=== PATIENT | female | born 1995 | race Two or more races ===

== ENCOUNTER 2018-08-09 11:28 | Emergency (ER) | payer OTHER ==
[2018-08-09] MEDS ORDERED: LORazepam 2 MG/ML INJ ONE (11:41)
[2018-08-09 12:24] LABS: PLATELET COUNT 312 10^3/uL (150-400)
--- NOTE | 2018-08-09 12:54 | EDPHY ---
H & P Stated Complaint: MULTIPLE SEIZURES Time Seen by Provider: 08/09/18 12:44 HPI/ROS: CHIEF COMPLAINT: Seizure HISTORY OF PRESENT ILLNESS: 23-year-old female with history of seizure disorder presents after a likely seizure. She was diagnosed with a seizure disorder 2 years ago and took Keppra for a while. She has stopped taking Keppra. She awoke on the floor in the morning, feeling like she had a seizure during the night. She typically has had seizures at nighttime only during sleeping. Her mattress is on the floor. Tongue feels sore, o/w feels back to normal. Has an appointment with a seizure specialist in [place]. REVIEW OF SYSTEMS: complete 10 point ROS reviewed and is negative except for the noted elements in the HPI Source: Patient - Personal History LMP (Females 10-55): Now Current Tetanus/Diphtheria Vaccine: Yes Current Tetanus Diphtheria and Acellular Pertussis (TDAP): Yes - Medical/Surgical History Hx Asthma: Yes Hx Chronic Respiratory Disease: No Hx Diabetes: No Hx Cardiac Disease: No Hx Renal Disease: No Hx Cirrhosis: No Hx Alcoholism: No Hx HIV/AIDS: No Hx Splenectomy or Spleen Trauma: No - Social History Smoking Status: Never smoked Alcohol Use: Sober Drug Use: None - Physical Exam Exam: General Appearance: Alert, pleasant Eyes: Pupils equal and round, no conjunctival pallor or injection ENT, Mouth: tongue appears normal, tenderness rt side of tongue, mucous membranes moist Neck: Normal inspection, NT, range of motion without pain Respiratory: Lungs are clear to auscultation Cardiovascular: Regular rate and rhythm Gastrointestinal: Abdomen is soft and nontender Neurological: Alert, oriented x3, cranial nerves II through XII intact, motor 5 /5, sensory intact to light touch, normal gait Skin: Warm and dry, no rash Extremities: Nontender, no pedal edema Psychiatric: Mood and affect normal Constitutional: Initial Vital Signs Temperature (C) 36.5 C 08/09/18 11:33 Heart Rate 91 08/09/18 11:33 Respiratory Rate 18 08/09/18 11:33 Blood Pressure 128/93 H 08/09/18 11:33 O2 Sat (%) 93 08/09/18 11:33 O2 Delivery Mode Room Air O2 (L/minute) 3 Medical Decision Making ED Course/Re-evaluation: This patient presents after a likely seizure during sleep. Neurologic exam is normal. Previous seizures also occurred during sleep. She has an appointment to see a seizure specialist in [place] next week. Will not place pt on seizure medication for now. Patient understands that she cannot drive until she is cleared by her neurologist. Warning signs discussed. Differential Diagnosis: Differential diagnosis includes though it is not limited to status epilepticus, hypoglycemia, intracranial hemorrhage, CVA, benzodiazepine withdrawal, alcohol withdrawal, epilepsy. - Data Points Laboratory Results: Laboratory Results 08/09/18 12:09 08/09/18 12:09 Departure - Departure Disposition: Home, Routine, Self-Care Clinical Impression: Seizure Condition: Good Instructions: Epilepsy (ED) Additional Instructions: 1. No driving, dangerous activities such as riding a ski lift, swimming in a pool or other behavior that could put you or someone else at risk in the event of a recurrent seizure. You will need to be cleared by a neurologist to resume these activities. 2. Please return to the ED for recurrent seizure, headache, numbness, weakness, altered mental status or other concerns. 3. Please follow up with neurologist you have been referred to this week to schedule a follow-up appointment. Referrals: Sonny Ledbetter DO [Medical Doctor] - 2-3 days, call for appt.
[2018-08-09 13:15] VITALS: BP 121/76
== END 2018-08-09 13:14 | disposition home or self-care (01) ==
DX: G40.909 Epilepsy, unspecified, not intractable, without status epilepticus (principal)
CPT/HCPCS: J2060